=== PATIENT | male | born 1990 | race Asian ===

== ENCOUNTER 2016-10-08 17:12 | Emergency (ER) | payer SELFPAY ==
[~2016-10-08] VITALS: Ht 160 cm; Wt 78.5 kg
[2016-10-08 18:58] VITALS: BP 143/93
== END 2016-10-08 18:58 | disposition home or self-care (01) ==
LOC: ED 17:12
DX: S93.402A Sprain of unspecified ligament of left ankle, initial encounter (principal); S79.912A Unspecified injury of left hip, initial encounter; S89.92XA Unspecified injury of left lower leg, initial encounter; V23.4XXA Motorcycle driver injured in collision with car, pick-up truck or van in traffic accident, initial encounter; Y93.55 Activity, bike riding; Y92.488 Other paved roadways as the place of occurrence of the external cause; Y99.8 Other external cause status